=== PATIENT | male | born 1945 | race Caucasian/White ===

== ENCOUNTER 2016-10-27 07:53 | Day surgery (SDC) | payer OTHER, MEDICARE ==
[2016-10-23 10:56] VITALS: BMI 31.0
[2016-10-27] MEDS ORDERED: PROPOFOL 20 ML ONE ×2 (08:11)
[2016-10-27] MEDS ORDERED: LIDOCAINE HCL/PF 2% SDV 5ML VIAL ONE (08:12)
[2016-10-27 08:13] VITALS: TEMP 98.5
[2016-10-27 10:24] VITALS: BP 110/60; PULSE 72
== END 2016-10-27 10:30 | disposition home or self-care (01) ==
LOC: FASU-ENDO 07:53
PROVIDERS: ATTEND Internal Medicine Gastroenterology
PROC: 0DJD8ZZ Inspection of Lower Intestinal Tract, Via Natural or Artificial Opening Endoscopic (ICD-10-PCS; principal; 2016-10-27 09:12)
DX: Z12.11 Encounter for screening for malignant neoplasm of colon (principal); Z80.0 Family history of malignant neoplasm of digestive organs; K57.30 Diverticulosis of large intestine without perforation or abscess without bleeding; K64.8 Other hemorrhoids

== ENCOUNTER 2025-04-05 08:14 | Day surgery (SDC) | payer OTHER, MEDICARE ==
[2025-03-31 09:26] VITALS: BMI 28.8
[2025-04-05] MEDS ORDERED: TETRACAINE 0.5% OPHTH SOLN 2 ML BOTTLE ONE (08:30)
[2025-04-05] MEDS ORDERED: EPINEPHrine 1:1000 P/F - 1 MG/ML AMP ONE (08:30)
[2025-04-05] MEDS ORDERED: NEO/POLYMYX B SULF/DEXAMETH OPHTHALMIC 5ML BOTTLE ONE (08:30)
[2025-04-05] MEDS ORDERED: EPI-SHUGARCAINE (EPINEPHRINE 0.025% & LIDOCAINE-PF 0.75%) 4ML ONE (08:30)
[2025-04-05] MEDS ORDERED: LIDOCAINE 1% P/F 10 MG/ML VIAL ONE (08:30)
[2025-04-05] MEDS ORDERED: BSS (NA/CA/MG/K) BALANCED SALT SOLUTION OPHTH SOLN 15 ML BOTTLE ONE (08:30)
[2025-04-05] MEDS: CYCLOPENTOLATE 2% OPHTH SOLN 2 ML BOTTLE ONE (08:35)
[2025-04-05] MEDS: TROPICAMIDE 1% OPHTH SOLN 15 ML BOTTLE ONE (08:35)
[2025-04-05] MEDS: PHENYLEPHRINE 2.5% OPTHALMIC DROP 2ML BOTTLE ONE (08:35)
[2025-04-05] MEDS: CIPROFLOXACIN 0.3% EYE DROPS 5 ML BOTTLE ONE (08:35)
[2025-04-05 08:52] VITALS: RESP 18
[2025-04-05] MEDS ORDERED: MIDAZOLAM HCL 2 MG/2 ML SINGLE DOSE VIAL ONE (10:08)
[2025-04-05 11:03] VITALS: PULSE 74; TEMP 97.8
[2025-04-05 11:28] VITALS: BP 115/79
== END 2025-04-05 11:29 | disposition home or self-care (01) ==
LOC: FASU 08:14
PROVIDERS: ATTEND Ophthalmology
PROC: 08RK3JZ Replacement of Left Lens with Synthetic Substitute, Percutaneous Approach (ICD-10-PCS; principal; 2025-04-05 10:35)
DX: H26.8 Other specified cataract (principal)
CPT/HCPCS: 66984; V2632